=== PATIENT | female | born 1935 | race Caucasian/White ===

== ENCOUNTER 2017-04-23 02:00 | Emergency (ER) | payer MEDICARE, BC ==
[2017-04-23] MEDS ORDERED: Sodium Chloride 0.9% 10 ML Syringe FLUSH PRN (02:42)
[2017-04-23] MEDS ORDERED: Aluminum Hydroxide/Magnesium Hydroxide/Simethicone Susp 30 ML Cup PO ONE (02:43)
[2017-04-23] MEDS ORDERED: LORazepam 2 MG/ML MDV IVPUSH ONE (03:15)
[2017-04-23] MEDS ORDERED: Metoprolol Tartrate 25 MG Tab PO ONE ×2 (03:32→03:36)
--- NOTE | 2017-04-23 05:39 | EDM.PDOC ---
ED HPI GENERAL MEDICAL PROBLEM - General Chief Complaint: Cardiovascular Problem Stated Complaint: RAPIDS HEART RATE Time Seen by Provider: 04/23/17 02:41 Source of Information: Reports: Patient History Limitations: Reports: No Limitations - History of Present Illness INITIAL COMMENTS - FREE TEXT/NARRATIVE: This patient comes in complaining of a rapid heart rate. At home her heart rate was 104 and usually it's about 60 her blood pressure was 176/103. She denies any anxiety. She does have a history of GERD which seems to cause an increased heart rate. She said this episode started after taking vitamins tonight. She also takes a thyroid medication. She certain she did not take a double dose of her thyroid med. She would like to try some antacid. - Related Data Allergies Allergy/AdvReac Type Severity Reaction Status Date / Time thiethylperazine maleate Allergy Difficulty Verified 08/02/16 16:01 [From Torecan] Breathing Home Meds: Home Meds Levothyroxine 1 tab PO DAILY 10/26/14 [History] Metoprolol Succinate [Toprol XL] 1 tab PO DAILY 10/26/14 [History] Past Medical History Cardiovascular History: Reports: Hypertension Gastrointestinal History: Reports: GERD Other OB/BYN History: breast surgery breast cancer Endocrine/Metabolic History: Reports: Hypothyroidism Oncologic (Cancer) History: Reports: Breast - Past Surgical History Female Surgical History: Reports: Hysterectomy Social & Family History - Tobacco Use Smoking Status *Q: Never Smoker Second Hand Smoke Exposure: No - Caffeine Use Caffeine Use: Reports: Coffee - Alcohol Use Days Per Week of Alcohol Use: 0 - Recreational Drug Use Recreational Drug Use: No ED ROS GENERAL - Review of Systems Review Of Systems: ROS reveals no pertinent complaints other than HPI. ED EXAM, GENERAL - Physical Exam Exam: See Below Exam Limited By: No Limitations General Appearance: Alert, No Apparent Distress Eye Exam: Bilateral Eye: Normal Inspection Throat/Mouth: Normal Inspection Head: Atraumatic Respiratory/Chest: No Respiratory Distress, Lungs Clear Cardiovascular: Regular Rate, Rhythm GI/Abdominal: Non-Tender Extremities: Normal Inspection Neurological: Alert Skin Exam: Warm, Dry Course - Vital Signs Last Recorded V/S: Last Vital Signs Temp 36.4 C 04/23/17 02:12 Pulse 89 04/23/17 05:15 Resp 16 04/23/17 05:15 BP 109/59 L 04/23/17 05:15 Pulse Ox 99 04/23/17 05:15 - Orders/Labs/Meds Labs: Laboratory Tests 04/23/17 04/23/17 04/23/17 Range/Units 02:53 02:53 02:53 WBC 6.5 (4.5-11.0) K/uL RBC 4.05 (3.30-5.50) M/uL Hgb 12.3 (12.0-15.0) g/dL Hct 36.5 (36.0-48.0) % MCV 90 (80-98) fL MCH 30 (27-31) pg MCHC 34 (32-36) % Plt Count 236 (150-400) K/uL Neut % (Auto) 41 (36-66) % Lymph % (Auto) 43 (24-44) % [place] % (Auto) 13 H (2-6) % Eos % (Auto) 2 (2-4) % Baso % (Auto) 1 (0-1) % Sodium 142 (140-148) mmol/L Potassium 4.1 (3.6-5.2) mmol/L Chloride 105 (100-108) mmol/L Carbon Dioxide 28 (21-32) mmol/L Anion Gap 9.4 (5.0-14.0) mmol/L BUN 24 H D (7-18) mg/dL Creatinine 0.8 (0.6-1.0) mg/dL Est Cr Clr Drug Dosing 43.24 mL/min Estimated GFR (MDRD) > 60 (>60) Glucose 95 (74-106) mg/dL Calcium 9.1 (8.5-10.1) mg/dL Total Bilirubin 0.3 (0.2-1.0) mg/dL AST 20 (15-37) U/L ALT 19 (12-78) U/L Alkaline Phosphatase 90 (46-116) U/L Troponin I < 0.017 (0.000-0.056) ng/mL Total Protein 6.7 (6.4-8.2) g/dL Albumin 3.4 (3.4-5.0) g/dL Globulin 3.3 (2.3-3.5) g/dL Albumin/Globulin Ratio 1.0 L (1.2-2.2) Free T4 1.05 (0.76-1.46) ng/dL TSH, Ultra Sensitive 3.632 (0.358-3.740) uIU/mL Meds: Medications Discontinued Medications Generic Name Dose Route Start Last Admin Trade Name Loyd PRN Reason Stop Dose Admin Al Hydroxide/Mg Hydroxide 30 ml 04/23/17 02:43 04/23/17 02:49 Mag-Al Plus PO 04/23/17 02:44 30 ml ONETIME ONE Administration Lorazepam 0.5 mg 04/23/17 03:15 04/23/17 03:31 Ativan IVPUSH 04/23/17 03:16 Not Given ONETIME ONE Metoprolol Tartrate 25 mg 04/23/17 03:32 04/23/17 03:46 Lopressor PO 04/23/17 03:33 Not Given ONETIME ONE Metoprolol Tartrate 25 mg 04/23/17 03:36 04/23/17 03:50 Lopressor PO 04/23/17 03:37 Not Given ONETIME ONE Sodium Chloride 10 ml 04/23/17 02:42 Saline Flush FLUSH ASDIRECTED PRN Keep Vein Open - Re-Assessments/Exams Free Text/Narrative Re-Assessment/Exam: 05/09/17 21:02 EKG showed a sinus rhythm at 10 6 bpm. There was some increased WA interval. No ischemic changes. The patient required no medication while she was here. Labs were reviewed. Her thyroid functions are normal. Departure - Departure Time of Disposition: 05:37 Disposition: Home, Self-Care 01 Condition: Fair Clinical Impression: History of sinus tachycardia Instructions: Sinus Tachycardia Referrals: PCP,None [Primary Care Provider] - Forms: ED Department Discharge Additional Instructions: Continue your usual medications. If you continue to have a rapid heart rate then follow-up with your doctor. You're welcome to return to the ER at any time.
[2017-04-23 05:41] VITALS: BP 109/59
== END 2017-04-23 05:42 | disposition home or self-care (01) ==
LOC: JP.ED 02:00
DX: R00.0 Tachycardia, unspecified (principal); K21.9 Gastro-esophageal reflux disease without esophagitis; I10 Essential (primary) hypertension; E03.9 Hypothyroidism, unspecified; Z88.8 Allergy status to other drugs, medicaments and biological substances; Z79.899 Other long term (current) drug therapy
CPT/HCPCS: 36415; 80053; 84439; 84443; 84484; 85025; 93005; 93010; 96374; 99283; 99285; A9270

== ENCOUNTER 2018-01-04 21:22 | Emergency (ER) | payer MEDICARE, BC ==
--- NOTE | 2018-01-04 21:55 | EDM.PDOC ---
ED HPI GENERAL MEDICAL PROBLEM - General Chief Complaint: Cardiovascular Problem Stated Complaint: SOB / FAST HEART RATE Time Seen by Provider: 01/04/18 21:43 Source of Information: Reports: Patient, Family, RN Notes Reviewed History Limitations: Reports: No Limitations - History of Present Illness INITIAL COMMENTS - FREE TEXT/NARRATIVE: 82-year-old female presents emergency department day complaint of palpitations, she states had this several times over the last several years last was in January last year she is not had any workup for this earlier today she felt her heart rate going around 120 bpm. [place] it was a regular. She did have some chest pain predominately underneath her left shoulder blade. At this time has no symptoms - Related Data Allergies Allergy/AdvReac Type Severity Reaction Status Date / Time thiethylperazine maleate Allergy Difficulty Verified 01/04/18 21:30 [From Torecan] Breathing Home Meds: Home Meds Levothyroxine 1 tab PO DAILY 10/26/14 [History] Metoprolol Succinate [Toprol XL] 1 tab PO DAILY 10/26/14 [History] Past Medical History HEENT History: Reports: Cataract Cardiovascular History: Reports: Hypertension, Other (See Below) Other Cardiovascular History: hx sinus tachycardia Gastrointestinal History: Reports: GERD Other OB/BYN History: breast surgery breast cancer Musculoskeletal History: Reports: Fracture Endocrine/Metabolic History: Reports: Hypothyroidism Oncologic (Cancer) History: Reports: Breast - Past Surgical History HEENT Surgical History: Reports: Cataract Surgery GI Surgical History: Reports: Colonoscopy Female Surgical History: Reports: Hysterectomy, Oophorectomy, Salpingo- Oophorectomy Social & Family History - Tobacco Use Smoking Status *Q: Never Smoker Second Hand Smoke Exposure: No - Caffeine Use Caffeine Use: Reports: Coffee, Energy Drinks - Alcohol Use Days Per Week of Alcohol Use: 0 - Recreational Drug Use Recreational Drug Use: No ED ROS GENERAL - Review of Systems Review Of Systems: See Below Constitutional: Reports: No Symptoms HEENT: Reports: No Symptoms Respiratory: Reports: Shortness of Breath Cardiovascular: Reports: Chest Pain, Palpitations GI/Abdominal: Reports: No Symptoms : Reports: No Symptoms Musculoskeletal: Reports: No Symptoms Skin: Reports: No Symptoms Neurological: Reports: No Symptoms Psychiatric: Reports: No Symptoms ED EXAM, GENERAL - Physical Exam Exam: See Below Free Text/Narrative:: General: Female, not in any distress, alert and oriented x3 HEENT: head is atraumatic normocephalic, eyes pupils equal round reactive to light, sclera clear no conjunctivitis appreciated. Ears tympanic membranes clear and hebert landmarks and light reflex are present bilaterally canals are clear. Nose no septal deviation, nares are clear, no blood present. Mouth mucosa is moist and pink no erythema or exudate noted in soft palate, tongue is midline uvula is midline, dentition is intact. Neck: Supple no thyromegaly no tracheal deviation. Nodes: Cervical nodes subclavicular nodes nontender no palpable lymphadenopathy noted. Lungs: clear to auscultation bilaterally with symmetrical respirations, no adventitious noise appreciated. CV: Regular rate and rhythm S1 and S2 appreciated no murmurs rubs or gallops noted. Abdomen: Soft, nontender, no palpable masses or organomegaly appreciated, no distention no guarding bowel sounds are present, . Neuro: Cranial nerves II through XII grossly intact Skin: Warm and dry, intact Extremities: No lower extremity edema appreciated, Course - Vital Signs Last Recorded V/S: Last Vital Signs Temp 97.2 F 01/04/18 21:34 Pulse 102 H 01/04/18 22:38 Resp 15 01/04/18 22:38 BP 149/79 H 01/04/18 22:38 Pulse Ox 94 L 01/04/18 22:38 - Orders/Labs/Meds Orders: Active Orders 24 hr Category Date Time Status Cardiac Monitoring [RC] .As Directed Care 01/04/18 21:51 Active EKG Documentation Completion [RC] ASDIRECTED Care 01/04/18 21:52 Active Chest 2V [CR] Stat Exams 01/04/18 21:52 Taken EKG 12 Lead [EK] Stat Ther 01/04/18 21:52 Ordered Labs: Laboratory Tests 01/04/18 01/04/18 Range/Units 21:51 21:51 WBC 5.9 (4.5-11.0) K/uL RBC 3.90 (3.30-5.50) M/uL Hgb 11.8 L (12.0-15.0) g/dL Hct 35.8 L (36.0-48.0) % MCV 92 (80-98) fL MCH 30 (27-31) pg MCHC 33 (32-36) % Plt Count 230 (150-400) K/uL Neut % (Auto) 42 (36-66) % Lymph % (Auto) 42 (24-44) % [place] % (Auto) 13 H (2-6) % Eos % (Auto) 2 (2-4) % Baso % (Auto) 1 (0-1) % Sodium 147 (140-148) mmol/L Potassium 3.9 (3.6-5.2) mmol/L Chloride 110 H (100-108) mmol/L Carbon Dioxide 27 (21-32) mmol/L Anion Gap 13.9 (5.0-14.0) mmol/L BUN 18 (7-18) mg/dL Creatinine 1.0 (0.6-1.0) mg/dL Est Cr Clr Drug Dosing 35.88 mL/min Estimated GFR (MDRD) 53 L (>60) Glucose 113 H (74-106) mg/dL Calcium 8.9 (8.5-10.1) mg/dL Total Bilirubin 0.2 (0.2-1.0) mg/dL AST 23 (15-37) U/L ALT 23 (12-78) U/L Alkaline Phosphatase 108 (46-116) U/L Creatine Kinase 77 (26-192) U/L CK-MB (CK-2) 1.1 (0-3.6) mg/mL Total Protein 6.6 (6.4-8.2) g/dL Albumin 3.4 (3.4-5.0) g/dL Globulin 3.2 (2.3-3.5) g/dL Albumin/Globulin Ratio 1.1 L (1.2-2.2) Departure - Departure Time of Disposition: 22:52 Disposition: Home, Self-Care 01 Condition: Fair Clinical Impression: Palpitations Referrals: Jasbir Mckee MD [Primary Care Provider] - Forms: ED Department Discharge Additional Instructions: Recommend follow-up with your primary care tomorrow, recommend consultation with cardiology for palpitations - My Orders Last 24 Hours: My Active Orders 01/04/18 21:51 Cardiac Monitoring [RC] .As Directed 01/04/18 21:52 EKG Documentation Completion [RC] ASDIRECTED Chest 2V [CR] Stat EKG 12 Lead [EK] Stat - Assessment/Plan Last 24 Hours: My Active Orders 01/04/18 21:51 Cardiac Monitoring [RC] .As Directed 01/04/18 21:52 EKG Documentation Completion [RC] ASDIRECTED Chest 2V [CR] Stat EKG 12 Lead [EK] Stat Plan: Assessment Acuity = acute Site and laterality = palpitations Etiology = unclear etiology Manifestations = none Location of injury = Home Lab values = CBC, CMP within normal limits CK-MB was negative chest x-ray I did review films myself I cannot appreciate any acute process, the official read from radiology is pending, EKG demonstrates a sinus rhythm P waves are fixed but significantly delayed similar to EKG on 2016 Plan I did review lab chest x-ray EKG results with her she does have a follow-up with her primary care provider tomorrow will provide a copy of EKG recommend consultation with cardiology, this may be the etiology of her palpitations This note was dictated using [employer] voice recognition software please call with any questions on syntax or george.
[2018-01-04 22:50] VITALS: BP 149/79
--- NOTE | 2018-01-05 08:56 | CR ---
CHEST: 2 view CLINICAL HISTORY:Palpitations COMPARISON:2016 FINDINGS: Lungs are hyperaerated. Heart and pulmonary vascularity appear normal. There are atheroscl erotic changes in the aorta.. No infiltrate effusion or pneumothorax is seen. IMPRESSION: No acute cardiopulmonary process or significant change from prior study Hyperaeration
== END 2018-01-04 23:02 | disposition home or self-care (01) ==
LOC: JP.ED 21:22
DX: R00.2 Palpitations (principal); I10 Essential (primary) hypertension; E03.9 Hypothyroidism, unspecified; Z88.8 Allergy status to other drugs, medicaments and biological substances; Z79.899 Other long term (current) drug therapy
CPT/HCPCS: 36415; 71046; 71046-26; 80053; 82550; 82553; 85025; 93005; 99285-25

== ENCOUNTER 2019-08-24 00:02 | Emergency (ER) | payer MEDICARE, BC ==
--- NOTE | 2019-08-24 00:20 | EDM.PDOC ---
ED HPI GENERAL MEDICAL PROBLEM - General Chief Complaint: Cardiovascular Problem Stated Complaint: HIGH BP, FAST HEART RATE Time Seen by Provider: 08/24/19 00:20 Source of Information: Reports: Patient, Old Records History Limitations: Reports: No Limitations - History of Present Illness INITIAL COMMENTS - FREE TEXT/NARRATIVE: 83 yo female thought her heart was beating faster than normal tonight. Otherwise feels fine. Has not missed any of her metoprolol doses, last dose tonight with dinner. Is currently finishing up a course of Vanco for C.diff. Onset: Today Onset Date: 08/23/19 Duration: Minutes:, Constant Location: Reports: Chest Quality: Reports: Other (no pain) Severity: Moderate Improves with: Reports: None Worsens with: Reports: Other (unknown) Context: Reports: Other (was in bed and felt heart beating faster than usual. 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) - Related Data Allergies Allergy/AdvReac Type Severity Reaction Status Date / Time thiethylperazine maleate Allergy Difficulty Verified 01/04/18 21:30 [From Torecan] Breathing Home Meds: Home Meds Levothyroxine 25 mcg PO DAILY 10/26/14 [History] Metoprolol Succinate [Toprol XL] 25 mg PO BEDTIME 10/26/14 [History] LORazepam 0.25 mg PO Q8H PRN #7 tab 08/24/19 [Rx] Vancomycin HCl 08/24/19 [History] Past Medical History HEENT History: Reports: Cataract Cardiovascular History: Reports: Hypertension, Other (See Below) Other Cardiovascular History: hx sinus tachycardia Gastrointestinal History: Reports: GERD 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 Musculoskeletal History: Reports: Fracture Endocrine/Metabolic History: Reports: Hypothyroidism Oncologic (Cancer) History: Reports: Breast - Past Surgical History HEENT Surgical History: Reports: Cataract Surgery GI Surgical History: Reports: Colonoscopy Female Surgical History: Reports: Hysterectomy, Oophorectomy, Salpingo- Oophorectomy Social & Family History - Tobacco Use Smoking Status *Q: Never Smoker - Caffeine Use Caffeine Use: Reports: None - Recreational Drug Use Recreational Drug Use: No ED ROS GENERAL - Review of Systems Review Of Systems: ROS reveals no pertinent complaints other than HPI. Constitutional: Reports: No Symptoms HEENT: Reports: No Symptoms Respiratory: Reports: No Symptoms Cardiovascular: Reports: Other (rapid heart rate) GI/Abdominal: Reports: No Symptoms Skin: Reports: No Symptoms ED EXAM, GENERAL - Physical Exam Exam: See Below Exam Limited By: No Limitations General Appearance: Alert, WD/WN, No Apparent Distress, Thin Eye Exam: Bilateral Eye: Normal Inspection Ears: Normal Canal, Hearing Grossly Normal Ear Exam: Bilateral Ear: Auricle Normal, Canal Normal Nose: Normal Inspection, No Blood Throat/Mouth: Normal Inspection, Normal Lips, Normal Oropharynx, Normal Voice, No Airway Compromise Head: Atraumatic, Normocephalic Neck: Normal Inspection Respiratory/Chest: No Respiratory Distress, Lungs Clear, Normal Breath Sounds, No Accessory Muscle Use Cardiovascular: Regular Rate, Rhythm, No Edema GI/Abdominal: Normal Bowel Sounds, Soft, Non-Tender, No Distention Extremities: Normal Inspection, Normal Range of Motion, Non-Tender, No Pedal Edema Neurological: Alert, Oriented, CN II-XII Intact, Normal Cognition, No Motor/ Sensory Deficits Psychiatric: Normal Affect, Normal Mood Skin Exam: Warm, Dry, Intact, Normal Color, No Rash EKG INTERPRETATION EKG Date: 08/24/19 Time: 00:10 Rhythm: NSR Rate (Beats/Min): 93 [place]: Normal P-Wave: Present QRS: Normal ST-T: Normal QT: Normal Comparison: No Change EKG Interpretation Comments: First degree AV block persists. Course - Vital Signs Last Recorded V/S: Last Vital Signs Temp 36.6 C 08/24/19 00:12 Pulse 76 08/24/19 01:09 Resp 14 08/24/19 01:09 BP 134/69 08/24/19 01:09 Pulse Ox 99 08/24/19 01:09 Orthostatic Blood Pressure [ 151/89 Standing] Orthostatic Blood Pressure [ 155/87 Sitting] Orthostatic Blood Pressure [ 136/74 Supine] - Orders/Labs/Meds Orders: Active Orders 24 hr Category Date Time Status Cardiac Monitoring [RC] .As Directed Care 08/24/19 00:05 Active EKG Documentation Completion [RC] ASDIRECTED Care 08/24/19 00:11 Active Orthostatic Vital Signs [RC] ASDIRECTED Care 08/24/19 01:09 Active EKG 12 Lead [EK] Routine Ther 08/24/19 00:11 Ordered Labs: Laboratory Tests 08/24/19 08/24/19 Range/Units 00:25 00:30 WBC 6.5 (4.5-11.0) K/uL RBC 3.92 (3.30-5.50) M/uL Hgb 11.4 L (12.0-15.0) g/dL Hct 35.7 L (36.0-48.0) % MCV 91 (80-98) fL MCH 29 (27-31) pg MCHC 32 (32-36) % Plt Count 284 (150-400) K/uL Sodium 138 L (140-148) mmol/L Potassium 4.2 (3.6-5.2) mmol/L Chloride 102 (100-108) mmol/L Carbon Dioxide 27 (21-32) mmol/L Anion Gap 13.2 (5.0-14.0) mmol/L BUN 17 (7-18) mg/dL Creatinine 0.8 (0.6-1.0) mg/dL Est Cr Clr Drug Dosing 44.08 mL/min Estimated GFR (MDRD) > 60 (>60) Glucose 95 (74-106) mg/dL Calcium 9.3 (8.5-10.1) mg/dL Troponin I < 0.017 (0.000-0.056) ng/mL Meds: Medications Discontinued Medications Generic Name Dose Route Start Last Admin Trade Name Freq PRN Reason Stop Dose Admin Lorazepam 0.25 mg 08/24/19 00:27 08/24/19 00:35 Ativan PO 08/24/19 00:28 0.25 mg ONETIME ONE Administration Departure - Departure Time of Disposition: 01:40 Disposition: Home, Self-Care 01 Condition: Good Clinical Impression: GERD (gastroesophageal reflux disease) Qualifiers: Esophagitis presence: without esophagitis Qualified Code(s): K21.9 - Gastro- esophageal reflux disease without esophagitis Prescriptions: LORazepam 0.25 mg PO Q8H PRN #7 tab PRN Reason: Anxiety Instructions: Gastroesophageal Reflux Disease, Adult Referrals: PCP,None [Primary Care Provider] - Forms: ED Department Discharge Additional Instructions: Avoid eating for 3+ hrs before going to bed. If you get reflux or tachycardia try taking 30 ml of Gaviscon by mouth. If this doesn't help, then try lorazepam 0.25 mg orally. If neither helps let your doctor know or return to the ER. Ranitidine can reduce your symptoms as well, but needs to be taken daily to work optimally. - My Orders Last 24 Hours: My Active Orders 08/24/19 00:05 Cardiac Monitoring [RC] .As Directed 08/24/19 00:11 EKG Documentation Completion [RC] ASDIRECTED EKG 12 Lead [EK] Routine 08/24/19 01:09 Orthostatic Vital Signs [RC] ASDIRECTED - Assessment/Plan Last 24 Hours: My Active Orders 08/24/19 00:05 Cardiac Monitoring [RC] .As Directed 08/24/19 00:11 EKG Documentation Completion [RC] ASDIRECTED EKG 12 Lead [EK] Routine 08/24/19 01:09 Orthostatic Vital Signs [RC] ASDIRECTED
[2019-08-24] MEDS ORDERED: LORazepam 0.5 MG Tab PO ONE (00:27)
[2019-08-24 01:10] VITALS: BP 134/69; PULSE 76
== END 2019-08-24 01:50 | disposition home or self-care (01) ==
LOC: JP.ED 00:02
DX: K21.9 Gastro-esophageal reflux disease without esophagitis (principal); I10 Essential (primary) hypertension; E03.9 Hypothyroidism, unspecified; Z79.899 Other long term (current) drug therapy; Z88.8 Allergy status to other drugs, medicaments and biological substances
CPT/HCPCS: 36415; 80048; 84484; 85027; 93005; 99285; A9270

== ENCOUNTER 2023-04-08 03:15 | Emergency (ER) | payer MEDICARE, BC ==
[2023-04-08 03:22] VITALS: PULSE 100
[2023-04-08 03:43] VITALS: BP 170/83
== END 2023-04-08 04:09 | disposition home or self-care (01) ==
LOC: JP.ED 03:15
DX: R00.2 Palpitations (principal); I10 Essential (primary) hypertension; E03.9 Hypothyroidism, unspecified; Z88.8 Allergy status to other drugs, medicaments and biological substances; Z79.899 Other long term (current) drug therapy
CPT/HCPCS: 99284

== ENCOUNTER 2025-07-13 14:35 | Emergency (ER) | payer MEDICARE, BC ==
[2025-07-13 15:49] LABS: BASOPHILS ABSOLUTE AUTO 0.05 K/uL (0.00-0.10); BASOPHILS PERCENT AUTO 0.6 % (0.1-1.3); EOSINOPHILS ABSOLUTE AUTO 0.10 K/uL (0.00-0.40); EOSINOPHILS PERCENT AUTO 1.2 % (0.0-5.4); IMMATURE GRAN ABSOLUTE AUTO 0.02 K/uL (0.00-0.23); IMMATURE GRAN PERCENT AUTO 0.2 % (0.0-0.7); LYMPHOCYTES ABSOLUTE AUTO 2.65 K/uL (0.8-3.3); LYMPHOCYTES PERCENT AUTO 31.9 % (11.4-47.7); MONOCYTES ABSOLUTE AUTO 0.90 K/uL (0.20-0.90); MONOCYTES PERCENT AUTO 10.8 % (3.3-12.6); NEUTROPHILS ABSOLUTE AUTO 4.59 K/uL (1.0-7.6); NEUTROPHILS PERCENT AUTO 55.3 % (40.0-78.1); PLATELET COUNT,PLT 202 K/uL (130-375); RED BLOOD CELL COUNT 3.65 M/uL (3.77-5.24); WHITE BLOOD CELL COUNT,WBC 8.3 K/uL (3.2-11.0)
[2025-07-13 16:03] LABS: BLOOD UREA NITROGEN,BUN 14.0 mg/dL (7-18); CARBON DIOXIDE,CO2 32.0 mmol/L (21-32); CHLORIDE,CL 106.0 mmol/L (100-108); CREATININE 1.0 mg/dL (0.6-1.0); EST CRCL DRUG DOSING (CG) 30.16 mL/min; ESTIMATED GFR 54.0 mL/min (>60); GLUCOSE RANDOM 104.0 mg/dL (74-106); POTASSIUM,K 3.9 mmol/L (3.6-5.2); SODIUM,NA 141.0 mmol/L (140-148)
[2025-07-13 16:13] LABS: APPEARANCE,URINE SLIGHTLY CLOUDY (CLEAR); GLUCOSE,URINE NEGATIVE (NEGATIVE); OCCULT BLOOD,URINE TRACE-INTACT (NEGATIVE)
[2025-07-13 16:24] LABS: SQUAMOUS EPITHELIAL CELLS,UR RARE /HPF; UROTHELIAL CELLS,URINE NOT SEEN /HPF
[2025-07-13] MEDS ORDERED: Sodium Chloride 0.9% 10 ML Syringe FLUSH PRN (17:33)
[2025-07-13] MEDS: Iopamidol 612 MG/ML 100 ML Bottle IV SCH (18:04)
[2025-07-13 19:24] VITALS: BP 153/71; PULSE 72
== END 2025-07-13 19:30 | disposition home or self-care (01) ==
LOC: JP.ED 14:35
DX: S21.211A Laceration without foreign body of right back wall of thorax without penetration into thoracic cavity, initial encounter (principal); S20.211A Contusion of right front wall of thorax, initial encounter; S70.01XA Contusion of right hip, initial encounter; I10 Essential (primary) hypertension; E03.9 Hypothyroidism, unspecified; K21.9 Gastro-esophageal reflux disease without esophagitis; Z90.710 Acquired absence of both cervix and uterus; Z79.899 Other long term (current) drug therapy; Z79.01 Long term (current) use of anticoagulants; Z88.8 Allergy status to other drugs, medicaments and biological substances; W01.198A Fall on same level from slipping, tripping and stumbling with subsequent striking against other object, initial encounter
CPT/HCPCS: 36415; 71260; 74177; 80048; 81001; 85025; 99284; A9270; Q9967